=== PATIENT | female | born 1930 | race Caucasian/White ===

== ENCOUNTER 2016-09-03 07:03 | Emergency (ER) | payer MEDICARE, OTHER ==
[2016-09-03 08:22] LABS: BASOPHILS 0.3 % (0.0-2.0); EOSINOPHILS 0.5 % (0-7); HEMATOCRIT 47.6 % (36.0-48.0); HEMOGLOBIN 15.5 g/dL (12-16); IMMATURE GRANULOCYTES 0.2 % (0-5); LYMPHOCYTES 12.5 % (15-50); MCH 28.9 pg (26.0-34.0); MCHC 32.6 g/dL (31.0-37.0); MCV 88.6 fL (80.0-100.0); MEAN PLATELET VOLUME 9.4 fL (7.4-10.4); MONOCYTES 6.6 % (2-11); NEUTROPHILS 79.9 % (40-80); PLATELET COUNT 242 10x3/uL (130-400); RBC 5.37 10x6/uL (4.00-5.40); RDW 14.3 % (11.5-14.5); WBC 11.1 10x3/uL (4.8-10.8)
[2016-09-03 08:52] LABS: APTT 29.2 SECONDS (22.8-39.4); INR 0.97 (0.85-1.17); PROTIME 12.7 SECONDS (11.6-15.0)
[2016-09-03 08:56] LABS: ALBUMIN 3.5 g/dL (3.4-5.0); ANION GAP 12.2 mmol/L (8-16); BILIRUBIN - TOTAL 0.72 mg/dL (0.2-1.3); CALCIUM 9.6 mg/dL (8.5-10.1); CARBON DIOXIDE 28.8 mmol/L (21.0-32.0); PROTEIN - SERUM 7.6 g/dL (6.4-8.2)
== END 2016-09-03 09:36 | disposition home or self-care (01) ==
LOC: D.ER 07:03
PROVIDERS: Emergency Medicine
DX: S50.811A Abrasion of right forearm, initial encounter (principal); W19.XXXA Unspecified fall, initial encounter; Y93.89 Activity, other specified; Y92.012 Bathroom of single-family (private) house as the place of occurrence of the external cause; S00.03XA Contusion of scalp, initial encounter; S30.0XXA Contusion of lower back and pelvis, initial encounter; S70.01XA Contusion of right hip, initial encounter; F32.9 Major depressive disorder, single episode, unspecified; I10 Essential (primary) hypertension; E78.5 Hyperlipidemia, unspecified

== ENCOUNTER 2016-09-28 22:56 | Emergency (ER) | payer MEDICARE, OTHER | END 2016-09-29 03:38 | disposition home or self-care (01) | LOC: D.ER 22:56 | DX: S83.91XA Sprain of unspecified site of right knee, initial encounter (principal); W19.XXXA Unspecified fall, initial encounter; Y93.89 Activity, other specified; Y92.89 Other specified places as the place of occurrence of the external cause; M25.562 Pain in left knee; M25.561 Pain in right knee; F32.9 Major depressive disorder, single episode, unspecified; I10 Essential (primary) hypertension; E78.5 Hyperlipidemia, unspecified ==

== ENCOUNTER 2016-11-07 19:54 | Emergency (ER) | payer MEDICARE, OTHER | END 2016-11-07 22:10 | disposition home or self-care (01) | LOC: D.ER 19:54 | DX: S00.03XA Contusion of scalp, initial encounter (principal); W19.XXXA Unspecified fall, initial encounter; I10 Essential (primary) hypertension; E78.5 Hyperlipidemia, unspecified; I48.91 Unspecified atrial fibrillation ==

== ENCOUNTER 2016-12-05 12:11 | Emergency (ER) | payer MEDICARE, OTHER | END 2016-12-05 15:23 | disposition home or self-care (01) | LOC: D.ER 12:11 | DX: S00.03XA Contusion of scalp, initial encounter (principal); W19.XXXA Unspecified fall, initial encounter; Y93.89 Activity, other specified; Y92.129 Unspecified place in nursing home as the place of occurrence of the external cause; S16.1XXA Strain of muscle, fascia and tendon at neck level, initial encounter; I10 Essential (primary) hypertension ==

== ENCOUNTER 2017-07-05 06:50 | Emergency (ER) | payer MEDICARE, OTHER ==
[2017-07-05 08:37] LABS: BASOPHILS 0.2 % (0-2); EOSINOPHILS 1.3 % (0-7); HEMOGLOBIN 10.7 g/dL (12-16); IMMATURE GRANULOCYTES 0.2 % (0-5); LYMPHOCYTES 24.3 % (15-50); MCH 30.1 pg (26.0-34.0); MCHC 32.4 g/dL (31.0-37.0); MCV 92.7 fL (80.0-100.0); MEAN PLATELET VOLUME 10.1 fL (7.4-10.4); MONOCYTES 24.7 % (2-11); NEUTROPHILS 49.3 % (40-80); PLATELET COUNT 271 10x3/uL (130-400); RBC 3.56 10x6/uL (4.00-5.40); RDW 13.4 % (11.5-14.5); WBC 4.5 10x3/uL (4.8-10.8)
[2017-07-05 08:51] LABS: ALBUMIN 2.9 g/dL (3.4-5.0); ALKALINE PHOSPHATASE 69 U/L (46-116); ALT (SGPT) 13 U/L (10-68); BILIRUBIN - TOTAL 0.55 mg/dL (0.2-1.3); CALC OSMOLALITY 279 mosm/kg (275-300); CARBON DIOXIDE 30.1 mmol/L (21.0-32.0); CHLORIDE - SERUM 100 mmol/L (98-107); CREATININE - SERUM 1.3 mg/dL (0.6-1.3); GLUCOSE 100 mg/dL (74-106); POTASSIUM - SERUM 4.4 mmol/L (3.5-5.1); PROTEIN - SERUM 6.9 g/dL (6.4-8.2); SODIUM 136 mmol/L (136-145); UREA NITROGEN 35 mg/dL (7-18); eGFR NON AFRICAN AMERICAN 41 mL/min (90-120)
[2017-07-05 09:03] LABS: CKMB 0.9 U/L (0.0-3.6); CREATINE KINASE 49 UL (21-215)
[2017-07-05 09:06] LABS: TROPONIN-I < 0.017 ng/mL (0.000-0.060)
== END 2017-07-05 08:19 | disposition home or self-care (01) ==
LOC: D.ER 06:50
PROVIDERS: Family Medicine
DX: S06.5X9A Traumatic subdural hemorrhage with loss of consciousness of unspecified duration, initial encounter (principal); W01.0XXA Fall on same level from slipping, tripping and stumbling without subsequent striking against object, initial encounter; Y93.89 Activity, other specified; Y92.129 Unspecified place in nursing home as the place of occurrence of the external cause